=== PATIENT | female | born 1940 | race Caucasian/White ===

== ENCOUNTER 2022-07-23 12:00 | Emergency (ER) | payer MEDICARE, OTHER ==
[~2022-07-23] VITALS: Ht 167.6 cm; Wt 54.5 kg
[~2022-07-23 12:00] MED LIST: ASPI-1053 PO; ATOR10TA87 PO; BRIM5DRO2 OP; CHOL200013 PO; LACT1CAP73 PO; LIRA0.6P SQ; LOP25T PO; LOTE3.5O OP; LOTE5DRO3 EACHEYE; NITR0.4T48 SL; NITR100C11 PO; OXYB1PAT TD
[2022-07-23 12:54] VITALS: BP 173/92
[2022-07-23] MEDS ORDERED: morphine 4 MG/ML inj SYRINge IV ONE (14:45)
[2022-07-23] MEDS ORDERED: ondansetron/PF 4mg/2ml inj IV ONE (15:15)
[2022-07-23] MEDS ORDERED: LIDOcaine 1% 30ml preserv. free vial IJ ONE (15:25)
[2022-07-23] MEDS ORDERED: HYDR-3965 PO (16:24)
[2022-07-23] MEDS ORDERED: IBUP-860 PO (16:24)
== END 2022-07-23 16:52 | disposition home or self-care (01) ==
LOC: ER 12:00
DX: S52.501A Unspecified fracture of the lower end of right radius, initial encounter for closed fracture (principal); I10 Essential (primary) hypertension; E11.9 Type 2 diabetes mellitus without complications; W18.39XA Other fall on same level, initial encounter; Y93.89 Activity, other specified; Y92.89 Other specified places as the place of occurrence of the external cause; Y99.8 Other external cause status
CPT/HCPCS: 25605; 73100; 73110; 96374; 96375; 99284; J2270; J2405; A4565; A6449

== ENCOUNTER 2023-10-23 12:52 | Emergency (ER) | payer MEDICARE, OTHER ==
[~2023-10-23] VITALS: Ht 167.6 cm; Wt 55.9 kg
[~2023-10-23 12:52] MED LIST changes: +IBUP-860 PO
[2023-10-23 13:04] VITALS: TEMP 97.2
[2023-10-23 15:22] VITALS: BP 195/81; PULSE 65; RESP 16; O2SAT 98
== END 2023-10-23 15:26 | disposition home or self-care (01) ==
LOC: ER 12:53
DX: S60.811A Abrasion of right wrist, initial encounter (principal); S00.211A Abrasion of right eyelid and periocular area, initial encounter; S00.511A Abrasion of lip, initial encounter; S09.90XA Unspecified injury of head, initial encounter; I10 Essential (primary) hypertension; E11.9 Type 2 diabetes mellitus without complications; Z79.899 Other long term (current) drug therapy; W19.XXXA Unspecified fall, initial encounter; Y93.89 Activity, other specified; Y92.89 Other specified places as the place of occurrence of the external cause; Y99.8 Other external cause status
CPT/HCPCS: 70450; 72125; 99284